=== PATIENT | female | born 1990 | race Caucasian/White ===

== ENCOUNTER → 2016-10-22 | Outpatient (CLI) | payer MEDICAID ==
[~2016-10-22] MED LIST: no current meds
--- NOTE | 2016-10-22 16:35 | DI ---
Indication: ITS.REASON: R51 ALLEN; M54.2 CERVICALGIA PROCEDURE: MRI BRAIN W/O CONTRAST: Encounter: Initial Comparisons: Head CT 02/01/2014 Technique: Multiplanar, multisequence, MR imaging of the head without contrast was acquired. FINDINGS: No restricted diffusion is seen to suggest recent ischemic infarction. The normal abdul-white matter differentiation is maintained. No intra-axial or extra-axial mass or hemorrhage seen. No mass effect or midline shift. The ventricles and cerebral sulci are normal in size, shape, and configuration without evidence of hydrocephalus. The basilar cisterns are patent. Normal flow void seen within the intracranial arterial and venous structures indicating patency. The paranasal sinuses and mastoid air cells are well-aerated. The orbits and globes appear normal. IMPRESSION: Normal noncontrast brain MRI. .
== END ==
LOC: IMA 14:01
PROVIDERS: ATTEND Internal Medicine
DX: M54.2 Cervicalgia (principal); R51 Headache